=== PATIENT | female | born 1975 | race Caucasian/White ===

== ENCOUNTER → 2016-11-14 | Outpatient (CLI) | payer BC ==
[2016-11-14 13:45] LABS: BILIRUBIN,URINE NEGATIVE (NEG); CLARITY,URINE CLOUDY (CLEAR); COLOR,URINE YELLOW; GLUCOSE, URINE (UA) NEGATIVE (NEG); NITRATE,URINE NEGATIVE (NEG); OCCULT BLOOD,URINE LARGE (NEG); PH,URINE 5.5 (5.0-8.5); PROTEIN,URINE 100 mg/dl (NEG); UROBILINOGEN,URINE 0.2 mg/dL (0.2)
[2016-11-14 13:47] LABS: BACTERIA,URINE MODERATE; RBC,URINE >100 /hpf; SQUAMOUS EPITHELIAL CELL,UR FEW; URINE SAMPLE TYPE VOIDED SPECIMEN; WBC,URINE >100
== END ==
LOC: LAB 13:24
PROVIDERS: ATTEND Internal Medicine Infectious Disease
DX: R30.0 Dysuria (principal)
CPT/HCPCS: 81001; 87077; 87088; 87186

== ENCOUNTER → 2016-12-27 | Outpatient (CLI) | payer BC ==
[2016-12-27 14:01] LABS: BILIRUBIN,URINE NEGATIVE (NEG); CLARITY,URINE CLEAR (CLEAR); COLOR,URINE YELLOW; GLUCOSE, URINE (UA) NEGATIVE (NEG); NITRATE,URINE NEGATIVE (NEG); OCCULT BLOOD,URINE LARGE (NEG); PROTEIN,URINE 100 mg/dl (NEG); UROBILINOGEN,URINE 0.2 mg/dL (0.2)
[2016-12-27 14:13] LABS: BACTERIA,URINE MODERATE; RBC,URINE 20-30 /hpf; SQUAMOUS EPITHELIAL CELL,UR RARE; URINE SAMPLE TYPE CLEAN CATCH URINE; WBC,URINE 40-50
== END ==
LOC: LAB 13:32
PROVIDERS: ATTEND Internal Medicine Infectious Disease
DX: R30.0 Dysuria (principal)
CPT/HCPCS: 81001; 87077; 87088; 87186

== ENCOUNTER → 2016-12-29 | Outpatient (CLI) | payer BC ==
--- NOTE | 2016-12-30 12:08 | DI ---
LEFT KNEE, 12/29/2016 10:49 AM: Clinical History: Left knee pain. Previous Exam: None at this facility. 4 views are submitted. The AP and tunnel projections are weight bearing views. There is no acute soft tissue, osseous, or joint abnormality. There is mild to moderate narrowing of the medial compartment indicating degenerative arthritic disease. Reading: Mild to moderate degenerative arthritic change of the medial compartment.
== END ==
LOC: ORTHO 11:55
PROVIDERS: ATTEND Physician Assistant
DX: M25.562 Pain in left knee (principal); M22.42 Chondromalacia patellae, left knee; M17.12 Unilateral primary osteoarthritis, left knee
CPT/HCPCS: 73564